=== PATIENT | male | born 1955 | race Caucasian/White ===

== ENCOUNTER 2017-01-27 15:04 | Outpatient (CLI) | payer OTHER ==
[2017-01-27 20:24] LABS: Cardiac Risk 4.2 (Less than 4.5)
== END 2017-01-27 15:05 | disposition home or self-care (01) ==
LOC: NAVSJIPCSP 15:04
PROVIDERS: ATTEND Internal Medicine
DX: E78.00 Pure hypercholesterolemia, unspecified (principal)
CPT/HCPCS: 36415; 80061